=== PATIENT | male | born 1965 | race American Indian/Alaskan Native ===

== ENCOUNTER 2019-05-25 00:13 | Emergency (ER) | payer SELFPAY ==
[2019-05-25 00:47] VITALS: BP 147/85
[2019-05-25] MEDS ORDERED: PEPCID PO ONE (04:33)
[2019-05-25] MEDS ORDERED: COMPAZINE PO ONE (04:33)
--- NOTE | 2019-05-25 05:20 | Emergency Department Report ---
ED General Adult HPI - General Chief complaint: Pain General Stated complaint: HICCUPS Source: patient, EMS Mode of arrival: Ambulatory Limitations: No Limitations - History of Present Illness Initial comments: Patient is a 54-year-old morbidly obese male who presents to the ED recombinant of acute onset persistent hiccups and burning epigastric pain for the last 1 week. Patient states that he was evaluated at an urgent care clinic and given a prescription of Prilosec but she has not been able to lease picker at the pharmacy. Patient states that in the last 6 hours he's had persistent intermittent hiccups and burning epigastric pain. Patient denies chest pain, shortness of breath, dizziness, fever, chills, nausea, vomiting, neck pain, sore throat, headache, diarrhea, dysuria, hematemesis or hematochezia. MD Complaint: Hiccups; GERD symptoms -: Sudden, week(s) (1) Location: abdomen Radiation: non-radiation Severity scale (0 -10): 4 Quality: burning, aching Consistency: intermittent Improves with: none Worsens with: none Associated Symptoms: denies other symptoms, loss of appetite. denies: confusion, chest pain, cough, diaphoresis, fever/chills, headaches, malaise, nausea/vomiting, shortness of breath, syncope, weakness Treatments Prior to Arrival: none - Related Data Previous Rx's Medication Instructions Recorded Last Taken Type Cyclobenzaprine [Flexeril] 10 mg PO Q8H PRN #21 tablet 05/25/19 Unknown Rx raNITIdine HCl [Zantac] 150 mg PO Q12H #30 tablet 05/25/19 Unknown Rx Allergies Allergy/AdvReac Type Severity Reaction Status Date / Time Penicillins Allergy Unknown Verified 05/25/19 00:45 ED Review of Systems ROS: Stated complaint: HICCUPS Other details as noted in HPI Constitutional: denies: chills, fever Eyes: denies: eye pain, eye discharge, vision change ENT: denies: ear pain, throat pain Respiratory: denies: cough, shortness of breath, wheezing Cardiovascular: denies: chest pain, palpitations Endocrine: no symptoms reported Gastrointestinal: abdominal pain (epigastric), other (Hiccups). denies: nausea, diarrhea Genitourinary: denies: urgency, dysuria Musculoskeletal: denies: back pain, joint swelling, arthralgia Skin: denies: rash, lesions Neurological: denies: headache, weakness, paresthesias Psychiatric: denies: anxiety, depression Hematological/Lymphatic: denies: easy bleeding, easy bruising ED Past Medical Hx - Past Medical History Previous Medical History?: Yes Additional medical history: pulmonary emboli. pulmonary htn - Surgical History Past Surgical History?: No - Social History Smoking Status: Never Smoker Substance Use Type: None - Medications Home Medications: Home Medications Medication Instructions Recorded Confirmed Last Taken Type Cyclobenzaprine [Flexeril] 10 mg PO Q8H PRN #21 tablet 05/25/19 Unknown Rx raNITIdine HCl [Zantac] 150 mg PO Q12H #30 tablet 05/25/19 Unknown Rx ED Physical Exam - General Limitations: No Limitations General appearance: alert, in no apparent distress, obese - Head Head exam: Present: atraumatic, normocephalic, normal inspection - Eye Eye exam: Present: normal appearance, PERRL, EOMI Pupils: Present: normal accommodation - ENT ENT exam: Present: normal exam, normal orophraynx, mucous membranes moist, TM's normal bilaterally, normal external ear exam - Neck Neck exam: Present: normal inspection, full ROM - Respiratory Respiratory exam: Present: normal lung sounds bilaterally. Absent: respiratory distress, wheezes, rhonchi, chest wall tenderness, accessory muscle use, decreased breath sounds - Cardiovascular Cardiovascular Exam: Present: regular rate, normal rhythm, normal heart sounds. Absent: systolic murmur, diastolic murmur, rubs, gallop - GI/Abdominal GI/Abdominal exam: Present: soft, tenderness (epigastric ), normal bowel sounds. Absent: hyperactive bowel sounds, hypoactive bowel sounds, mass - Rectal Rectal exam: Present: deferred - Extremities Exam Extremities exam: Present: normal inspection, normal capillary refill - Back Exam Back exam: Present: normal inspection, full ROM. Absent: CVA tenderness (L) - Neurological Exam Neurological exam: Present: alert, oriented X3, CN II-XII intact, normal gait - Psychiatric Psychiatric exam: Present: normal affect, normal mood - Skin Skin exam: Present: warm, dry, intact, normal color. Absent: rash ED Course Vital Signs 05/25/19 00:47 Temperature 97.2 F L Pulse Rate 96 H Respiratory 18 Rate Blood Pressure 147/85 O2 Sat by Pulse 100 Oximetry - Reevaluation(s) Reevaluation #1: 05/25/19 05:36 Patient is alert and oriented 3 and is not in distress with normal vital signs. Patient was treated in the ED for hiccups and GERD. On reevaluation, patient's hiccups have resolved in the ED and patient was discharged home on antacids and muscle relaxant and advised follow-up with his primary care physician in 7-10 days for reevaluation or return to the ED immediately if symptoms get worse. ED Medical Decision Making - Medical Decision Making Patient is alert and oriented 3 and is not in distress with normal vital signs. Patient was treated in the ED for hiccups and GERD. On reevaluation, patient's hiccups have resolved in the ED and patient was discharged home on antacids and muscle relaxant and advised follow-up with his primary care physician in 7-10 days for reevaluation or return to the ED immediately if symptoms get worse. - Differential Diagnosis Hiccups; GERD; Epigastric pain Critical care attestation.: If time is entered above; I have spent that time in minutes in the direct care of this critically ill patient, excluding procedure time. ED Disposition Clinical Impression: Hiccups GERD (gastroesophageal reflux disease) Qualifiers: Esophagitis presence: without esophagitis Qualified Code(s): K21.9 - Gastro- esophageal reflux disease without esophagitis Disposition: -01 TO HOME OR SELFCARE Is pt being admited?: No Does the pt Need Aspirin: No Condition: Stable Instructions: Hiccups (ED), Gastroesophageal Reflux Disease (ED) Additional Instructions: Take medications as needed with food, drink plenty of fluids and follow-up with your primary care physician in 7-10 days for reevaluation. Return to the ED immediately if symptoms get worse. Prescriptions: Cyclobenzaprine [Flexeril] 10 mg PO Q8H PRN #21 tablet PRN Reason: Muscle Spasm raNITIdine HCl [Zantac] 150 mg PO Q12H #30 tablet Referrals: PRIMARY CARE, [Primary Care Provider] - 3-5 Days Time of Disposition: 05:17 Print Language: SAMOAN
== END 2019-05-25 05:47 | disposition home or self-care (01) ==
LOC: ED 00:13
DX: K21.9 Gastro-esophageal reflux disease without esophagitis (principal); Z88.0 Allergy status to penicillin; Z79.899 Other long term (current) drug therapy
CPT/HCPCS: 99283; Q0164